=== PATIENT | female | born 1975 | race Caucasian/White ===

== ENCOUNTER 2023-08-24 16:34 | Outpatient (CLI) | payer MEDICAID, SELFPAY | END 2023-08-24 16:35 | disposition home or self-care (01) | PROVIDERS: PCP Family Medicine; Visit Provider Family Medicine | DX: R53.83 Other fatigue (principal); Z79.899 Other long term (current) drug therapy; Z13.29 Encounter for screening for other suspected endocrine disorder | CPT/HCPCS: 80053; 80061; 82306; 84443 ==

== ENCOUNTER 2025-03-20 08:52 | Outpatient (CLI) | payer MEDICAID, SELFPAY | END 2025-03-20 08:53 | disposition home or self-care (01) | LOC: NFLDREF 03-21 18:12 | PROVIDERS: PCP Family Medicine; Referring Provider Family Medicine; Visit Provider Family Medicine | DX: E55.9 Vitamin D deficiency, unspecified (principal); E78.00 Pure hypercholesterolemia, unspecified | CPT/HCPCS: 80053; 80061; 80076; 82306 ==

== ENCOUNTER 2025-04-19 08:59 | Outpatient (CLI) | payer MEDICAID, SELFPAY ==
--- NOTE | 2025-04-19 09:15 | CRLHL7_ITS ---
For Patients: As a result of the Century Cures Act, medical imaging exams and procedure reports are released immediately into your electronic medical record. You may view this report before your referring provider. If you have questions, please contact your health care provider. INDICATION: Right upper quadrant abdominal pain. COMPARISON: None. TECHNIQUE: Real time akers scale imaging was performed of the right upper quadrant. Color Doppler evaluation of the main portal vein was performed. FINDINGS: The patient`s liver is enlarged measuring 22.7 cm in cephalocaudal extent. The liver is quite echogenic suggesting hepatic fatty infiltration or other intrinsic hepatic parenchymal process. Please correlate clinically and with any pertinent laboratory values. The main portal vein is patent with flow in the normal direction. Peak velocity 21 centimeters/second. The main portal vein measures 1.3 cm in diameter. There is a normal appearance of the hepatic IVC and proximal abdominal aorta. There is no evidence of ascites. The gallbladder is of normal size and contains a large mobile 3.8 x 2.2 x 2.4 cm stone. The gallbladder wall measures 3 mm in thickness. The common bile duct is of normal size and measures 3 mm in diameter at the level of the joselito hepatis. The pancreas is incompletely visualized but is normal where seen. There is no evidence of a stone or hydronephrosis within the right kidney. The right kidney measures 13.1 x 5.5 x 4.9 cm. The right renal cortex measures 0.8 cm in thickness. IMPRESSION: 1. Large mobile gallstone in the gallbladder measuring up to 3.8 cm. No ultrasound evidence for acute cholecystitis. 2. Enlarged liver clearly echogenic suggesting fatty infiltration or other intrinsic hepatic parenchymal process. 3. Poor/incomplete visualization of the pancreas. Dictated by Chris Ojeda MD @ 04/19/2025 10:12:43 AM (Electronically Signed)
== END 2025-04-19 09:00 | disposition home or self-care (01) ==
PROVIDERS: PCP Family Medicine; Visit Provider Family Medicine
DX: R10.11 Right upper quadrant pain (principal); K80.20 Calculus of gallbladder without cholecystitis without obstruction; R16.0 Hepatomegaly, not elsewhere classified
CPT/HCPCS: 76705